=== PATIENT | female | born 1950 | race Caucasian/White ===

== ENCOUNTER 2022-08-22 09:15 | Emergency (ER) | payer OTHER ==
[~2022-08-22] VITALS: Ht 154.9 cm; Wt 83.9 kg
[2022-08-22 09:34] VITALS: BP_SYST 188; PULSE 67; RESP 18; TEMP 98.1; O2SAT 98
[2022-08-22] MEDS ORDERED: [UNRECOGNIZED DRUG - CODE] PO (10:55)
[2022-08-22] MEDS ORDERED: FAMO-132 PO (10:55)
[2022-08-22] MEDS ORDERED: BENZ100C92 PO (10:55)
[2022-08-22] MEDS ORDERED: PRED20TA PO (10:55)
[2022-08-22] MEDS ORDERED: ALBMDI INH (10:55)
[2022-08-22 12:37] VITALS: BP_SYST 145; PULSE 75; RESP 15; TEMP 97.5; O2SAT 97
== END 2022-08-22 11:07 | disposition home or self-care (01) ==
LOC: SED 09:15
DX: J06.9 Acute upper respiratory infection, unspecified (principal); K21.9 Gastro-esophageal reflux disease without esophagitis; R05.9 Cough, unspecified; J34.89 Other specified disorders of nose and nasal sinuses; R11.0 Nausea; E11.9 Type 2 diabetes mellitus without complications; I10 Essential (primary) hypertension; Z79.899 Other long term (current) drug therapy; Z20.822 Contact with and (suspected) exposure to COVID-19
CPT/HCPCS: 36415; 71045; 99284